=== PATIENT | female | born 1960 | race Caucasian/White ===

== ENCOUNTER → 2016-10-05 | Outpatient (CLI) | payer OTHER ==
--- NOTE | 2016-10-05 10:29 | REP ---
Left knee five views: There are no comparisons. There is an effusion. There is no fracture or dislocation. Mineralization and joint spaces are normal. No calcifications or foreign bodies. Impression: Joint effusion. Otherwise, negative left knee. Signed by Bayron El MD 10/05/2016 10:20 A
== END ==
LOC: M ADAMS 10:02
PROVIDERS: ATTEND Physician Assistant Medical
DX: S83.92XA Sprain of unspecified site of left knee, initial encounter (principal); M25.462 Effusion, left knee; X58.XXXA Exposure to other specified factors, initial encounter; Y93.9 Activity, unspecified; Y92.9 Unspecified place or not applicable; Y99.8 Other external cause status

== ENCOUNTER → 2019-11-21 | Outpatient (CLI) | payer OTHER ==
[~2019-11-21] MED LIST: LISI-542 PO; RIZA10TA58 PO; VITAD1000T PO; WELLTAB40 PO
== END ==
LOC: M LABSMTC 11:16
PROVIDERS: ATTEND Anesthesiology
DX: Z03.818 Encounter for observation for suspected exposure to other biological agents ruled out (principal); Z11.59 Encounter for screening for other viral diseases
CPT/HCPCS: C9803; U0003

== ENCOUNTER 2019-11-24 07:57 | Day surgery (SDC) | payer OTHER ==
[~2019-11-24] VITALS: Ht 165.1 cm; Wt 87.0 kg
[~2019-11-24 07:57] MED LIST changes: +LR 1,000 ML IV ONE; +ceFAZolin SOD 2 GM in IV 1 EA IV ONE
[2019-11-24] MEDS ORDERED: dexameTHASONE 4 MG/ML 1ML VIAL (J1100 PER 1MG) As Ordered ONE (08:57)
[2019-11-24] MEDS ORDERED: MIDAZOLAM INJ 2MG/2ML VIAL (J2250 PER 1MG) As Ordered ONE (08:57)
[2019-11-24] MEDS ORDERED: propofoL 200 MG/20 ML VIAL As Ordered ONE (08:57)
[2019-11-24] MEDS ORDERED: KETOROLAC 60 MG/2 ML VIAL As Ordered ONE (08:57)
[2019-11-24] MEDS ORDERED: ONDANSETRON 4MG/2ML VIAL As Ordered ONE (08:57)
[2019-11-24] MEDS ORDERED: LIDOCAINE 2% 100MG/5ML SDV (FOR ANES.) As Ordered ONE (08:57)
[2019-11-24] MEDS ORDERED: fentaNYL 100 MCG/2 ML INJECTION (J3010) As Ordered ONE (08:58)
[2019-11-24] MEDS ORDERED: oxyCODONE 5MG TAB PO PRN (10:45)
[2019-11-24] MEDS ORDERED: LR 1,000 ML IV SCH (10:45)
[2019-11-24] MEDS ORDERED: fentaNYL 100 MCG/2 ML INJECTION (J3010) IV PRN (10:45)
[2019-11-24] MEDS ORDERED: HYDROMORPHONE HCL 0.5 MG/ 0.5 ML SYRINGE (J1170 PER 1) IV PRN (10:45)
[2019-11-24] MEDS ORDERED: ONDANSETRON 4MG/2ML VIAL IV PRN (10:45)
[2019-11-24 12:04] VITALS: BP 124/68
--- NOTE | 2019-11-29 12:09 | RO ---
DATE OF PROCEDURE: 11/24/2019 PREOPERATIVE DIAGNOSIS: Postmenopausal bleeding with abnormal ultrasound. POSTOPERATIVE DIAGNOSIS: Postmenopausal bleeding with abnormal ultrasound and polyps. PROCEDURE: Dilation and curettage (D and C), hysteroscopy, MyoSure. SURGEON: Dr. Mica Duarte [employer]ION[employer] PROPERTY MANAGER: None. ANESTHESIA: Laryngeal mask airway (LMA). BRIEF DESCRIPTION OF PROCEDURE AND FINDINGS: Natali was brought to the operating room where sufficient LMA anesthesia was induced and she was prepped, draped and positioned in the usual sterile fashion. The weighted speculum placed, the bladder emptied and the anterior aspect of the cervix grasped with a single tooth tenaculum. The cervix was carefully dilated and the MyoSure hysteroscope placed. Endometrial polyps were noted. There were normal tubal ostia. The overall contour was slightly distorted anterior fundal with the look of a possible subserosal intramural fibroid, but not a pedunculated one. There were pedunculated polyp appearing lesions. The REACH MyoSure resector device was placed. This was used to remove the polyps and that area that had the appearance of fibroid and endometrium. We then did some final endometrial curettage and the procedure was ended. Estimated blood loss for the procedure was maybe 5 mL. Fluid replacement was crystalloid. Complications: None. Condition and Disposition: Natali tolerated the procedure well and was recovering in the recovery room in good condition.
== END 2019-11-24 12:07 | disposition home or self-care (01) ==
LOC: M SDC 07:57
PROVIDERS: ATTEND Obstetrics & Gynecology
DX: N95.0 Postmenopausal bleeding (principal); N85.01 Benign endometrial hyperplasia; I10 Essential (primary) hypertension; G43.909 Migraine, unspecified, not intractable, without status migrainosus; K21.9 Gastro-esophageal reflux disease without esophagitis; F41.9 Anxiety disorder, unspecified; F32.9 Major depressive disorder, single episode, unspecified; Z79.899 Other long term (current) drug therapy
CPT/HCPCS: 58558; 88304; J0690; J1100; J1885; J2250; J2405; J3010

== ENCOUNTER 2020-12-20 16:44 | Emergency (ER) | payer OTHER ==
[~2020-12-20] VITALS: Ht 165.1 cm; Wt 82.6 kg
[~2020-12-20 16:44] MED LIST changes: +D31000TA2 PO; -LISI-542 PO; +LISI-898 PO; -LR 1,000 ML IV ONE; -VITAD1000T PO; -ceFAZolin SOD 2 GM in IV 1 EA IV ONE
[2020-12-20] MEDS ORDERED: ATOR1TAB19 (16:56)
[2020-12-20] MEDS ORDERED: MEDR5TAB3 (16:56)
[2020-12-20] MEDS ORDERED: ASPI81CH33 PO (16:56)
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
[2020-12-20 18:40] VITALS: BP 133/75
== END 2020-12-20 18:49 | disposition home or self-care (01) ==
LOC: M ED 16:44
DX: S00.93XA Contusion of unspecified part of head, initial encounter (principal); S01.511A Laceration without foreign body of lip, initial encounter; W50.0XXA Accidental hit or strike by another person, initial encounter; Y92.89 Other specified places as the place of occurrence of the external cause; Y93.9 Activity, unspecified; Y99.0 Civilian activity done for income or pay; I10 Essential (primary) hypertension; G43.909 Migraine, unspecified, not intractable, without status migrainosus; F41.9 Anxiety disorder, unspecified; F32.9 Major depressive disorder, single episode, unspecified; G47.30 Sleep apnea, unspecified; Z79.899 Other long term (current) drug therapy

== ENCOUNTER → 2022-04-04 | Outpatient (CLI) | payer OTHER ==
[~2022-04-04] MED LIST changes: +ASPI81CH33 PO; +ATOR1TAB19; -D31000TA2 PO; -LISI-898 PO; +LISI5TAB11 PO; +MEDR5TAB3; +VITA100093 PO
== END ==
LOC: M WHC 08:34
PROVIDERS: ATTEND Nurse Practitioner Family
DX: Z12.31 Encounter for screening mammogram for malignant neoplasm of breast (principal); D25.1 Intramural leiomyoma of uterus

== ENCOUNTER → 2022-04-28 | Outpatient (CLI) | payer OTHER | LOC: M WHC 14:30 | PROVIDERS: ATTEND Nurse Practitioner Family | DX: D25.1 Intramural leiomyoma of uterus (principal) ==

== ENCOUNTER → 2022-09-11 | Outpatient (REF) | payer OTHER | LOC: M PLALAB 16:16 | PROVIDERS: ATTEND Advanced Practice Midwife | DX: Z12.4 Encounter for screening for malignant neoplasm of cervix (principal) | CPT/HCPCS: 87624; G0123 ==

== ENCOUNTER 2023-07-29 09:53 | Day surgery (SDC) | payer OTHER ==
[~2023-07-29] VITALS: Ht 164.5 cm; Wt 87.6 kg
[~2023-07-29 09:53] MED LIST changes: +ATOR1TAB19 PO; +METO1TAB7 PO; +PERC5TAB12 PO
[2023-07-29] MEDS ORDERED: fentaNYL 100 MCG/2 ML INJECTION As Ordered ONE (09:55)
[2023-07-29] MEDS ORDERED: LIDOCAINE 2% 100MG/5ML SDV (FOR ANES.) As Ordered ONE (09:56)
[2023-07-29] MEDS ORDERED: MIDAZOLAM INJ 2MG/2ML VIAL As Ordered ONE (09:56)
[2023-07-29] MEDS ORDERED: propofoL 200 MG/20 ML VIAL As Ordered ONE (09:56)
[2023-07-29] MEDS ORDERED: ACETAMINOPHEN 1000MG 100ML IV BAG As Ordered ONE (09:56)
[2023-07-29] MEDS ORDERED: ONDANSETRON 4MG 2ML VIAL As Ordered ONE (09:56)
[2023-07-29] MEDS ORDERED: SUGAMMADEX SODIUM 500 MG/5 ML VIAL (BRIDION) As Ordered ONE (09:56)
[2023-07-29] MEDS ORDERED: KETOROLAC 60MG 2ML VIAL As Ordered ONE (09:56)
[2023-07-29] MEDS ORDERED: ROCURONIUM BROMIDE 50MG/5ML VIAL As Ordered ONE (09:57)
[2023-07-29] MEDS ORDERED: LR 1,000 ML IV SCH ×2 (10:15→11:20)
[2023-07-29 10:25] LABS: HEMATOCRIT 43.8 % (36.0-47.0); MEAN CORPUSCULAR HEMOGLOBIN 28.6 pg (27.0-33.0); MEAN CORPUSCULAR VOLUME 89.6 fl (80.0-96.0); PLATELET COUNT, AUTOMATED 337 10^3/uL (150-450); RED BLOOD COUNT 4.89 10^6/uL (4.00-5.40); WHITE BLOOD COUNT 5.8 10^3/uL (4.0-10.0)
[2023-07-29] MEDS ORDERED: FLUORESCEIN 10% (100MG/ML) 5ML VIAL As Ordered ONE (11:01)
[2023-07-29 11:13] LABS: BLOOD UREA NITROGEN 11 MG/DL (9-23); CALCIUM LEVEL 9.4 MG/DL (8.3-10.6); CARBON DIOXIDE LEVEL 26 MMOL/L (20-31); CHLORIDE LEVEL 107 MMOL/L (98-107); GLOMERULAR FILTRATION RATE > 60.0 (>45); GLUCOSE, FASTING 99 MG/DL (74-106); POTASSIUM SERUM 3.9 MMOL/L (3.5-5.1); SODIUM LEVEL 139 MMOL/L (136-145)
[2023-07-29] MEDS: ceFAZolin SOD 2 GM in IV 1 EA IV ONE (11:25)
[2023-07-29] MEDS ORDERED: SCOPOLAMINE 1MG TRANSDERMAL PATCH TOP ONE (11:35)
[2023-07-29] MEDS ORDERED: LABETALOL 100MG/20ML VIAL As Ordered ONE (11:59)
[2023-07-29] MEDS ORDERED: ONDANSETRON 4MG 2ML VIAL IV PRN (12:55)
[2023-07-29] MEDS ORDERED: fentaNYL 100 MCG/2 ML INJECTION IV PRN (12:55)
[2023-07-29] MEDS ORDERED: PERCOCET 5MG/325MG TAB PO PRN (13:45)
[2023-07-29] MEDS: oxyCODONE 5MG TAB PO PRN (13:50)
[2023-07-29 14:12] VITALS: BP 153/70; TEMP 96.6; O2SAT 96
[2023-07-29] MEDS ORDERED: SIMETHICONE 80MG CHEW TAB PO SCH (18:00)
[2023-07-29] MEDS ORDERED: IBUPROFEN 800 MG TAB PO SCH (21:00)
== END 2023-07-29 14:31 | disposition home or self-care (01) ==
LOC: M SDC 09:53
PROVIDERS: ATTEND Obstetrics & Gynecology
DX: N95.0 Postmenopausal bleeding (principal); N85.00 Endometrial hyperplasia, unspecified; D25.9 Leiomyoma of uterus, unspecified; I10 Essential (primary) hypertension; E78.5 Hyperlipidemia, unspecified; I34.0 Nonrheumatic mitral (valve) insufficiency; K76.0 Fatty (change of) liver, not elsewhere classified; K21.9 Gastro-esophageal reflux disease without esophagitis; K58.8 Other irritable bowel syndrome; Z86.73 Personal history of transient ischemic attack (TIA), and cerebral infarction without residual deficits; G43.909 Migraine, unspecified, not intractable, without status migrainosus; F32.A Depression, unspecified; Z79.899 Other long term (current) drug therapy
CPT/HCPCS: 36415; 58571; 80048; 85027; 86850; 86900; 86901; 88108; 88307; 88313; J0131; J0665; J0690; J1100; J1885; J1920; J2250; J2405; J3010; S2900

== ENCOUNTER → 2024-02-09 | Outpatient (CLI) | payer OTHER | LOC: M WHC 15:32 | PROVIDERS: ATTEND Student in an Organized Health Care Education/Training Program | DX: Z12.31 Encounter for screening mammogram for malignant neoplasm of breast (principal); R92.313 Mammographic fatty tissue density, bilateral breasts ==

== ENCOUNTER 2024-10-13 18:23 | Emergency (ER) | payer OTHER ==
[~2024-10-13] VITALS: Ht 165.1 cm; Wt 91.3 kg
[2024-10-13 19:06] LABS: BASO % 0.4 % (0.0-1.0); EOS # 0.2 10^3/uL (0.0-0.5); EOS % 1.4 % (0.0-3.0); HEMATOCRIT 39.8 % (36.0-47.0); HEMOGLOBIN 13.1 g/dl (12.0-15.5); MEAN CORPUSCULAR HEMOGLOBIN 28.4 pg (27.0-33.0); MEAN CORPUSCULAR HGB CONC 32.9 g/dl (32.0-36.5); MEAN CORPUSCULAR VOLUME 86.1 fl (80.0-96.0); MONO # 0.8 10^3/uL (0.0-0.8); MONO % 7.5 % (2.0-8.0); NEUTROPHILS # 7.5 10^3/uL (1.5-8.5); NEUTROPHILS % 71.5 % (36.0-66.0); PLATELET COUNT, AUTOMATED 300 10^3/uL (150-450); RED BLOOD COUNT 4.62 10^6/uL (4.00-5.40); WHITE BLOOD COUNT 10.4 10^3/uL (4.0-10.0)
[2024-10-13] MEDS: KETOROLAC 30 MG/ML 1ML VIAL IV ONE (19:23)
[2024-10-13 19:27] LABS: ALBUMIN 3.6 G/DL (3.2-5.2); BILIRUBIN,DIRECT 0.1 MG/DL (<0.4); BILIRUBIN,TOTAL 0.4 MG/DL (0.3-1.2); TOTAL PROTEIN 6.9 G/DL (5.7-8.2)
[2024-10-13 19:52] LABS: KETONE, URINE AUTO RFX NEGATIVE (NEGATIVE); LEUKOCYTE ESTERASE UR AUTO RFX TRACE (NEGATIVE); NITRITE, URINE AUTO RFX NEGATIVE (NEGATIVE); RBC, URINE AUTO RFX 1 /HPF (0-3); SQUAM EPITHELIAL CELL UR AURFX 1 /HPF (0-6); WBC, URINE AUTO RFX 1 /HPF (0-3)
[2024-10-13] MEDS ORDERED: CIPR500T39 PO (20:19)
[2024-10-13] MEDS: cefTRIAXone SOD 1 GM in DEXTROSE 5% (D5W) ADV/MINI-BAG 50 ML IV ONE (20:22)
[2024-10-13 21:05] VITALS: BP 120/63; TEMP 98.1; O2SAT 99
== END 2024-10-13 21:06 | disposition home or self-care (01) ==
LOC: M ED 18:23
DX: N10 Acute pyelonephritis (principal); K80.20 Calculus of gallbladder without cholecystitis without obstruction; I10 Essential (primary) hypertension; Z87.442 Personal history of urinary calculi; Z79.899 Other long term (current) drug therapy
CPT/HCPCS: 74176; 80047; 80076; 81001; 83690; 85025; 87086; 96374; 96375; 99283; J0696; J1885